=== PATIENT | male | born 1980 | race Caucasian/White ===

== ENCOUNTER 2016-05-14 15:16 | Inpatient (IN) | payer OTHER ==
[~2016-05-14] VITALS: Ht 152.4 cm; Wt 120.0 kg
[~2016-05-14 15:16] MED LIST: ALEN35TA24 PO; CYAN1LOZ SL; CYCL1PAK PO; ESCI10TA PO; FENT75DI T-DERMAL; FLUT50SP EACH NARE; GABA400 PO; KCL10 PO; LEXA10TA PO; LEXA20TA PO; MELO15 PO; PERC10TA27 PO; SPIR50 PO; TRAZ50TA78 PO
[2016-05-14 15:31] VITALS: BP 120/80; PULSE 120; RESP 18; TEMP 98.7
--- NOTE | 2016-05-14 15:42 | PD ---
HPI Chief Complaint: Psychiatric Symptoms Time Seen by Provider: 15:42 Travel History International Travel<30 days: No Contact w/Intl Traveler<30days: No Traveled to known affect area: No History of Present Illness HPI 35-year-old male presents to the emergency department with local police under the Shields act for suicidal ideation. Patient has history of juvenile rheumatoid arthritis with stunted growth and neck pain. Patient has had bilateral hip replacement, bilateral knee replacement, and fused ankles. Patient normally has been taking Percocet and gabapentin as well as fentanyl for his pain. Patient states he had a disagreement with his pain management doctor approximate 3 weeks ago and has been without his pain and since that time. Patient feels that he cannot go on, and states a plan to kill himself including going out into traffic treated by car, or refusing to eat. He has no other acute medical complaints. He has no known drug allergies. PFSH Past Medical History Arthritis: Yes (RHEUMATOID, OSTEOARTHRITIS) Asthma: No Autoimmune Disease: Yes Anxiety: Yes Depression: No Heart Rhythm Problems: No Cancer: No (See EMR) High Cholesterol: No Chest Pain: No Congestive Heart Failure: No COPD: No Cerebrovascular Accident: No Diminished Hearing: No Endocrine: No Gastrointestinal Disorders: No GERD: Yes Genitourinary: No Hepatitis: No Hiatal Hernia: No Hypertension: No Immune Disorder: Yes (JUVENILE ARTHRITIS) Implanted Vascular Access Dvce: Yes Kidney Stones: No Musculoskeletal: Yes Neurologic: No Psychiatric: Yes Reproductive: No Respiratory: No Migraines: No Myocardial Infarction: No Renal Failure: No Sleep Apnea: No Ulcer: No Past Surgical History Abdominal Surgery: No AICD: No Appendectomy: No Arteriovenous Shunt: No Cardiac Surgery: No Cholecystectomy: No Ear Surgery: No Endocrine Surgery: No Eye Surgery: No Genitourinary Surgery: No Insulin Pump: No Joint Replacement: Yes (BILATERAL KNEE AND BILATERAL HIPS) Oral Surgery: No Pacemaker: No Thoracic Surgery: No Social History Alcohol Use: No Tobacco Use: Yes (cigars infrequently) Substance Use: No Allergies-Medications (Allergen,Severity, Reaction): Coded Allergies: No Known Allergies (Verified , 11/03/15) Reported Meds & Prescriptions Reported Meds & Active Scripts Active Desyrel (Trazodone HCl) 50 Mg Tab 50 Mg PO HS PRN Aldactone 50 Mg Tab (Spironolactone) 50 Mg Tab 50 Mg PO DAILY Klor-Con 10 (Potassium Chloride) 10 Meq Tab 10 Meq PO EVERY OTHER DAY Mobic 15 Mg Tab (Meloxicam) 15 Mg Tab 7.5 Mg PO 1/2 PO BID Neurontin (Gabapentin) 400 Mg Cap 800 Mg PO 2 PO TID Escitalopram Oxalate 10 Mg Tab 30 Mg PO 3 DAILY Cyclobenzaprine HCl 10 Mg Tab 10 Mg PO TID Reported Lexapro (Escitalopram Oxalate) 10 Mg Tab 10 Mg PO HS Lexapro (Escitalopram Oxalate) 20 Mg Tab 20 Mg PO DAILY Fentanyl 75 Mcg/Hr patch (Fentanyl) 75 Mcg/Hr Dis 1 Patch T-DERMAL Q3D Fluticasone Propionate (Nasal) 50 Mcg Spr 2 [place] EACH NARE DAILY Vitamin B-12 (Cyanocobalamin) 5,000 Mcg Sub 5,000 Mcg SL WEEKLY Alendronate Sodium 35 Mg Tab 35 Mg PO WEEKLY TUESDAY Percocet 10-325 mg (Oxycodone-Acetaminophen 10-325 mg) 1 Tab 1 Tab PO TID PRN PAIN Review of Systems Except as stated in HPI: all other systems reviewed are Neg General / Constitutional: No: Fever Eyes: No: Visual changes HENT: No: Headaches Cardiovascular: No: Chest Pain or Discomfort Respiratory: No: Shortness of Breath Gastrointestinal: No: Abdominal Pain Genitourinary: No: Dysuria Musculoskeletal: Positive: Myalgias, Arthralgias, Limited ROM, Pain (chronic pain. See history present illness.) Skin: No Rash Neurologic: No: Weakness Psychiatric: Positive: Depression, Suicidal Ideations, No: Homicidal Ideation Endocrine: No: Polydipsia Hematologic/Lymphatic: No: Easy Bruising Physical Exam Narrative GENERAL: Patient appears in no acute distress. SKIN: Warm and dry. Normal color. Normal turgor. HEAD: Atraumatic. Normocephalic. EYES: Pupils equal and round. No scleral icterus. No injection or drainage. ENT: No nasal bleeding or discharge. Mucous membranes pink and moist. NECK: Trachea midline. No JVD. CARDIOVASCULAR: Regular rate and rhythm. RESPIRATORY: No accessory muscle use. Clear to auscultation. Breath sounds equal bilaterally. GASTROINTESTINAL: Abdomen soft, non-tender, nondistended. Hepatic and splenic margins not palpable. MUSCULOSKELETAL: Extremities without clubbing, cyanosis, or edema. Patient has chronic abnormalities consistent with his history. No acute issues are noted. NEUROLOGICAL: Awake and alert. No obvious cranial nerve deficits. Motor grossly limited consistent with the patient's history. Five out of 5 muscle strength in the arms and legs. Normal speech. PSYCHIATRIC: Appropriate mood and affect; insight and judgment normal. Data Data Last Documented VS Vital Signs Date Time Temp Pulse Resp B/P Pulse Ox O2 Delivery O2 Flow Rate FiO2 05/14/16 15:31 98.7 120 18 120/80 Orders Complete Blood Count With Diff (05/14/16 15:42) Comprehensive Metabolic Panel (05/14/16 15:42) Psych Screen (05/14/16 15:42) Drug Screen, Random Urine (05/14/16 15:42) Alcohol (Ethanol) (05/14/16 15:42) Gabapentin (Neurontin) (05/14/16 16:00) Oxycodone-Acetamin 10-325 Mg (Percocet 1 (05/14/16 16:00) Diet Regular Basic (05/14/16 Dinner) Labs Laboratory Tests Test 05/14/16 15:43 White Blood Count 11.7 TH/MM3 Red Blood Count 5.23 MIL/MM3 Hemoglobin 13.9 GM/DL Hematocrit 42.0 % Mean Corpuscular Volume 80.2 FL Mean Corpuscular Hemoglobin 26.6 PG Mean Corpuscular Hemoglobin 33.1 % Concent Red Cell Distribution Width 13.8 % Platelet Count 202 TH/MM3 Mean Platelet Volume 9.0 FL Neutrophils (%) (Auto) 68.0 % Lymphocytes (%) (Auto) 26.0 % Monocytes (%) (Auto) 4.7 % Eosinophils (%) (Auto) 0.8 % Basophils (%) (Auto) 0.5 % Neutrophils # (Auto) 7.9 TH/MM3 Lymphocytes # (Auto) 3.0 TH/MM3 Monocytes # (Auto) 0.5 TH/MM3 Eosinophils # (Auto) 0.1 TH/MM3 Basophils # (Auto) 0.1 TH/MM3 CBC Comment DIFF FINAL Differential Comment Sodium Level 138 MEQ/L Potassium Level 3.2 MEQ/L Chloride Level 101 MEQ/L Carbon Dioxide Level 30.5 MEQ/L Anion Gap 7 MEQ/L Blood Urea Nitrogen 13 MG/DL Creatinine 0.62 MG/DL Estimat Glomerular Filtration 149 ML/MIN Rate Random Glucose 117 MG/DL Calcium Level 8.8 MG/DL Total Bilirubin 0.3 MG/DL Aspartate Amino Transf 14 U/L (AST/SGOT) Alanine Aminotransferase 30 U/L (ALT/SGPT) Alkaline Phosphatase 61 U/L Total Protein 8.1 GM/DL Albumin 3.9 GM/DL Ethyl Alcohol Level LESS THAN 3 MG/DL MDM Medical Decision Making Medical Screen Exam Complete: Yes Emergency Medical Condition: Yes Differential Diagnosis Shields act. Suicidal ideation. Chronic pain from juvenile rheumatoid arthritis. Situational stressors. Narrative Course Patient is medically stable at time of exam. Labs ordered per psychiatric protocol. Patient is given gabapentin 800 mg by mouth 1 as well as Percocet 12/3250. CBC shows mild leukocytosis of 11.7 without shift. CMP shows normal sodium potassium 3.2. Normal BUN/creatinine. Random glucose is 117. EtOH level is less than 3. Patient will be given 20 mEq of potassium by mouth. Patient is medically clear for psychiatric evaluation. Diagnosis Primary Impression: Suicidal ideation Additional Impressions: Major depressive disorder Qualified Code: F33.9 - Recurrent major depressive disorder, remission status unspecified Juvenile rheumatoid arthritis Condition: Stable Marko Will May 14, 2016 15:42
[2016-05-14] MEDS ORDERED: GABAPENTIN 400 MG CAP PO ONE ×2 (16:00→22:45)
[2016-05-14] MEDS ORDERED: oxyCODONE/ACETAMINOPHEN 10 MG/325 MG TAB PO ONE ×2 (16:00→22:45)
[2016-05-14 16:53] LABS: AUTOMATED NEUTROPHIL # 7.9 TH/MM3 (1.8-7.7); BASOPHIL # 0.1 TH/MM3 (0-0.2); BASOPHIL % 0.5 % (0.0-2.0); EOSINOPHIL # 0.1 TH/MM3 (0-0.4); EOSINOPHIL % 0.8 % (0.0-4.0); HEMO FLAGS DIFF FINAL; MEAN CELL VOLUME 80.2 FL (80.0-100.0); MEAN CORPUSCULAR HEMOGLOBIN 26.6 PG (27.0-34.0); MEAN CORPUSCULAR HGB CONC 33.1 % (32.0-36.0); MONO % 4.7 % (0.0-8.0); PLATELET COUNT 202 TH/MM3 (150-450); RED BLOOD COUNT 5.23 MIL/MM3 (4.50-5.90); RED CELL DISTRIBUTION WIDTH 13.8 % (11.6-17.2); WHITE BLOOD COUNT 11.7 TH/MM3 (4.0-11.0)
[2016-05-14 17:19] LABS: ANION GAP 7 MEQ/L (5-15)
[2016-05-14 17:23] LABS: ALKALINE PHOSPHATASE 61 U/L (45-117); ALT (GPT) 30 U/L (12-78); AST (GOT) 14 U/L (15-37); BICARBONATE 30.5 MEQ/L (21.0-32.0); BLOOD UREA NITROGEN 13 MG/DL (7-18); CHLORIDE 101 MEQ/L (98-107); GLOMERULAR FILTRATION RATE 149 ML/MIN (>89); POTASSIUM 3.2 MEQ/L (3.5-5.1); SODIUM (NA) 138 MEQ/L (136-145); TOTAL BILIRUBIN ADULT 0.3 MG/DL (0.2-1.0)
[2016-05-14] MEDS ORDERED: MELO-1 PO (20:15)
[2016-05-14] MEDS ORDERED: POTASSIUM CHLORIDE 20 MEQ CONTROLLED RELEASE TAB PO ONE (20:30)
[2016-05-14 21:18] VITALS: BP 89/52; PULSE 81; RESP 17; O2SAT 98
[2016-05-14] MEDS: traZODone HCL 50 MG TAB PO SCH (22:01)
[2016-05-15 01:07] LABS: AMPHETAMINE, URINE NEG (NEG); BARBITURATES, URINE NEG (NEG); COCAINE, URINE POS (NEG)
[2016-05-15 02:37] VITALS: BP 96/51; PULSE 65; RESP 18; TEMP 97.4; O2SAT 98
[2016-05-15] MEDS ORDERED: IBUPROFEN 600 MG TAB PO ONE (04:00)
[2016-05-15 06:12] VITALS: BP 95/55; PULSE 73; RESP 18; TEMP 97.7; O2SAT 96
[2016-05-15] MEDS: oxyCODONE/ACETAMINOPHEN 10 MG/325 MG TAB PO SCH (08:00)
[2016-05-15] MEDS: GABAPENTIN 400 MG CAP PO SCH (08:00)
[2016-05-15 10:41] VITALS: BP 100/55; PULSE 89; RESP 18; O2SAT 96
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
[2016-05-15] MEDS ORDERED: ALUMINUM/MAGNESIUM/SIMETH 30 ML CUP PO PRN (11:45)
[2016-05-15] MEDS ORDERED: MAGNESIUM HYDROXIDE SUSP 30 ML CUP PO PRN (11:45)
[2016-05-15 13:15] VITALS: BP 114/69; PULSE 89; RESP 12; TEMP 97
[2016-05-15 21:25] VITALS: BP 99/77; PULSE 67
[2016-05-15] MEDS: traZODone HCL 50 MG TAB PO SCH (21:28)
[2016-05-15] MEDS: ACETAMINOPHEN 325 MG TAB PO PRN (23:05)
[2016-05-16 05:29] VITALS: BP 135/78; PULSE 83; RESP 17; TEMP 97.4; O2SAT 95
[2016-05-16 08:22] LABS: ANION GAP 7 MEQ/L (5-15); BICARBONATE 29.2 MEQ/L (21.0-32.0); BLOOD UREA NITROGEN 10 MG/DL (7-18); CHLORIDE 105 MEQ/L (98-107); GLOMERULAR FILTRATION RATE 174 ML/MIN (>89); LDL CHOLESTEROL 82 MG/DL (0-99); MAGNESIUM 2.4 MG/DL (1.5-2.5); POTASSIUM 3.7 MEQ/L (3.5-5.1); SODIUM (NA) 141 MEQ/L (136-145)
[2016-05-16] MEDS: oxyCODONE/ACETAMINOPHEN 10 MG/325 MG TAB PO SCH (08:22)
[2016-05-16] MEDS: GABAPENTIN 400 MG CAP PO SCH ×2 (08:23→17:30)
[2016-05-16] MEDS: ACETAMINOPHEN 325 MG TAB PO PRN ×2 (13:24→20:45)
[2016-05-16 14:10] LABS: HEMOGLOBIN A1a 1.2 %; HEMOGLOBIN A1b 0.8 %; HEMOGLOBIN Ao 86.6 %; HEMOGLOBIN F 0.9 %; HEMOGLOBIN LA1C 1.8 %; HEMOGLOBIN P3 3.5 %
[2016-05-16] MEDS ORDERED: traZODone HCL 50 MG TAB PO PRN (14:15)
--- NOTE | 2016-05-16 14:31 | HHI.HP ---
Provisional Diagnosis Admission Date May 15, 2016 at 11:38 [place] I. Major depressive disorder recurrent severe without psychosis f 34.2 Certification of Person's Competence To Provide Express and Informed Consent I have personally examined Prabhjot Britt , a person being served at [facility] on, May 16, 2016 14:17. Express and informed consent means consent voluntarily given in writing, by a competent person, after sufficient explanation and disclosure of the subject matter involved to enable the person to make a knowing and willful decision without any element of force, fraud, deceit, duress, or other form of constraint or coercion. This person is 18 years of age or older, is not now known to be incompetent to consent to treatment with a guardian advocate, and does not have a health care surrogate or proxy currently making medical treatment decisions. I have found this person to be one of the following: []x Competent to provide express and informed consent, as defined above, for voluntary admission to this facility and is competent to provide express and informed consent for treatment. He/she has the consistent capacity to make well reasoned, willful, and knowing decisions concerning his or her medical or mental health treatment. The person fully and consistently understands the purpose of the admission for examination/placement and is fully capable of personally exercising all rights assured [place] Incompetent to provide express and informed consent to voluntary admission, and this is incompetent to provide express and informed consent to treatment. The person must be transferred to involuntary status and a petition for a guardian advocate filed with the Circuit Court. [] Refusing to provide express and informed consent to voluntary admission but is competent to provide express and informed consent for treatment. The person must be discharged or transferred to involuntary status. Form shall be completed within 24 hours of a person's arrival at the receiving facility and filed in the clinical record of each person: 1. Admitted on a voluntary basis 2. Permitted to provide express and informed consent to his/her own treatment 3. Allowed to transfer from involuntary to voluntary status 4. Prior to permitting a person to consent to his or her own treatment after having been previously found incompetent to consent to treatment. History of Present Illness Capacity: Has Capacity HPI Patient is a 35-year-old male severely disabled with arthritic issues in a wheelchair comes here under Shields act by Dr. thomas is community psychiatrist dated [place] at 1 PM stating Mr. Britt presents with depressed mood and in severe pain he states he does not feel in control insistence of being more impulsive driving his chair in street in order to kill himself he states he is intentionally starving himself in order to he does not care anymore. Patient seen screened in the ED urine toxicology positive for cocaine. At the present time patient sitting in a Gina chair nurse Gemma present throughout session. Patient is alert oriented calm cooperative did remember me from my caring for him 12/05/15 through 12/13/15 visited [phone]. Stating he is still grieving the of his 33-year-old friend was is" confident back in December. Though he states he has gone through counseling he still misses them and. He is also states she's been somewhat noncompliant with his medication including his Lexapro. He does acknowledge going on socializing with friends having some alcoholic beverages smoking marijuana. States the cocaine he had most of come through a spiked joint. Event patient is vague about suicidality at the present time he does deny voices or visions. He does receive back is medications. He does wish to have further counseling related to his friend's . He is stating he is having some increased stressors living at home with his mother. At this time patient does meet criteria for inpatient psychiatric hospitalization they feel he has capacity to sign voluntary thus I'll lift the Shields act. We'll continue him on his Neurontin Lexapro is trazodone. We have hospitalist consulting with us for his pain management and other medical issues. Hopeless to be a short stay in returned to the family follow-up [facility] Review of Systems Except as stated in HPI: all other systems reviewed are Neg Past Psych History Psychological trauma history Patient states friend was 33 years old of a heart attack January 10 he is still grieving Violence risk - others (6 mos) Low Violence risk - self (6 mos) Patient states his vague suicidality consider driving his amega into traffic Substance Abuse History Drugs/Alcohol past 12 months States was all friends occasionally drinks alcohol and smokes marijuana perhaps uses cocaine Past Family Social History Coded Allergies: No Known Allergies (Verified , 11/03/15) Past Medical History Multiple please see MedSurg Active Scripts Trazodone Hcl (Desyrel)50 Mg Tab50 Mg PO HS PRN (INSOMNIA) #15 TAB Ref 0 Prov:Ish Villalta MD 11/12/15 Spironolactone (Aldactone 50 Mg Tab)50 Mg Tab50 Mg PO DAILY #30 TAB Ref 0 Prov:Ish Villalta MD 11/12/15 Potassium Chloride (Klor-Con 10)10 Meq Tab10 Meq PO EVERY OTHER DAY #30 TAB Ref 0 Prov:Ish Villalta MD 11/12/15 Gabapentin (Neurontin)400 Mg Scx828 Mg PO 2 po tid #180 CAP Ref 0 Prov:Ish Villalta MD 11/12/15 Lfamqmglvaazaqs-Mdumryavt-Dbso (Cyclobenzaprinepax 10 & 0.0375-5 mg & %)10 Mg Tab10 Mg PO TID #90 TAB Ref 0 Prov:Ish Villalta MD 11/12/15 Reported Medications Meloxicam 15 Mg Tab50 Mg PO DAILY #30 TAB Ref 0 05/14/16 Escitalopram Oxalate (Lexapro)10 Mg Tab10 Mg PO HS 11/04/15 Escitalopram Oxalate (Lexapro)20 Mg Tab20 Mg PO DAILY 11/04/15 Fentanyl 75 Mcg/Hr patch 75 Mcg/Hr Dis1 Patch T-DERMAL Q3D 11/04/15 Fluticasone Propionate (Nasal) 50 Mcg Spr2 [place] EACH NARE DAILY 11/04/15 Cyanocobalamin (Vitamin B-12)5,000 Mcg Sub5,000 Mcg SL WEEKLY 11/04/15 Alendronate Sodium 35 Mg Tab35 Mg PO WEEKLY Tuesday11/04/15 Oxycodone-Acetaminophen 10-325 mg (Percocet 10-325 mg)1 Tab1 Tab PO TID #40 TAB PRN PAIN 11/17/12 Discontinued Scripts Meloxicam (Mobic 15 Mg Tab)15 Mg Tab7.5 Mg PO 1/2 po bid #15 TAB Ref 0 Prov:Ish Villalta MD 11/12/15 Escitalopram Oxalate 10 Mg Tab30 Mg PO 3 daily #90 TAB Ref 0 Prov:Ish Villalta MD 11/12/15 Current Medications Medications (Trade) Dose Ordered Sig/Michel Route Start Time Stop Time Status Last Admin (Neurontin) 800 mg DAILY@08 PO 05/15/16 08:00 05/16/16 08:23 (Desyrel) 50 mg HS PO 05/14/16 21:00 05/15/16 21:28 (Percocet 10-325 Mg) 1 tab DAILY@08 PO 05/15/16 08:00 05/16/16 08:22 (Tylenol) 650 mg Q4H PRN PO 05/15/16 11:45 05/16/16 13:24 (Milk Of Magnesia Liq) 30 ml DAILY PRN PO 05/15/16 11:45 (Mag-Al Plus Susp Liq) 30 ml Q6H PRN PO 05/15/16 11:45 Family History Patient denies mental illness and family Social History She lives with mother Patient's Strengths (min. 2) Patient verbal labile axis health care Physical Exam Patient seen screened in ED exam reveals and agreed with vital signs blood pressure 135/78 pulse 83 respirations 17 Vital Signs Vital Signs Date Time Temp Pulse Resp B/P Pulse Ox O2 Delivery O2 Flow Rate FiO2 05/16/16 05:29 97.4 83 17 135/78 95 05/15/16 10:41 Room Air Mental Status Examination Alert oriented quite short with arthritic change extremities significant Gina chair male calm cooperative with fair eye contact Appearance Clean neatly Speech: Unremarkable Orientation: x3 Memory: Unremarkable Thought Process: Logical Thought Content: Unremarkable Hallucination Type: None Attention and Concentration: Other (fair) Suicidal Ideation: Yes (vague) Previous Suicide Attempts: No Homicidal Ideation: No Previous Homicide Attempts: No Insight: Poor Judgement: Poor Affect: Other (slight decreased range and intensity) Mood: Euthymic (to moderately dysphoric) Motor Activity: Abnormal gait-specify (patient wheelchair-bound secondary to arthritic changes) Assessment & Plan Problem List: (1) MAJOR DEPRESSV DISORDER, RECURRENT SEVERE W/O PSYCH FEATURES ICD Code: F33.2 Assessment & Plan Estimated LOS: 3-5 days patient is criteria for brief psychiatric hospitalization on a voluntary basis will lift Shields act will continue medications as prior order. Patient still voices suicidal ideation though states feels safe here at [facility] Discharge Planning To be determined Request HC Surrog/Guard Advoc?: No Ish Villalta MD May 16, 2016 14:31
--- NOTE | 2016-05-16 14:34 | PD.CONS ---
HPI Service [facility] Consult Requested By Psychiatry team Reason for Consult Medical management Primary Care Physician Non-Staff Diagnoses: History of Present Illness Patient is a 35-year-old male with primary medical history of juvenile arthritis , chronic pain came into the hospital under Shields act for suicidal ideation. 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 Patient has had bilateral hip replacement, bilateral knee replacement, and fused ankles. Patient states that he is being followed by his PCP, cardiology, pain management - [facility] pain clinic with Dr. Lozano. States he has been taking Percocets 10/325, gabapentin 3 times a day, fentanyl patch 75 mics every 3 days. States he was changing his pain doctor and has run out of medication since Tuesday. His mother has told him that he might benefit with medical cannabis and be off of fentanyl patch, that's why he is changing his doctors. He continues to complain of bilateral knee pain and neck pain 09/04, also ankle pain and ankle swelling but states he always has pain and swelling. Patient also states he is nonambulatory, uses wheelchair at home. Otherwise, denies SOB/ dyspnea. Denies chest pain, palpitations, headaches, dizziness. Denies fevers, chills, n/v/d. Review of Systems Except as stated in HPI: all other systems reviewed are Neg Past Family Social History Allergies: Coded Allergies: No Known Allergies (Verified , 11/03/15) Past Medical History Juvenile arthritis Rheumatoid arthritis Anxiety Irregular heart beat? Past Surgical History Bilateral knee and bilateral hip replacements Reported Medications Desyrel (Trazodone HCl) 50 Mg Tab 50 Mg PO HS PRN Aldactone 50 Mg Tab (Spironolactone) 50 Mg Tab 50 Mg PO DAILY Klor-Con 10 (Potassium Chloride) 10 Meq Tab 10 Meq PO EVERY OTHER DAY Mobic 15 Mg Tab (Meloxicam) 15 Mg Tab 7.5 Mg PO 1/2 PO BID Neurontin (Gabapentin) 400 Mg Cap 800 Mg PO 2 PO TID Escitalopram Oxalate 10 Mg Tab 30 Mg PO 3 DAILY Cyclobenzaprine HCl 10 Mg Tab 10 Mg PO TID Active Ordered Medications Current Medications Medications (Trade) Dose Ordered Sig/Michel Route Start Time Stop Time Status Last Admin (Neurontin) 800 mg DAILY@08 PO 05/15/16 08:00 05/16/16 08:23 (Desyrel) 50 mg HS PO 05/14/16 21:00 05/15/16 21:28 (Percocet 10-325 Mg) 1 tab DAILY@08 PO 05/15/16 08:00 05/16/16 08:22 (Tylenol) 650 mg Q4H PRN PO 05/15/16 11:45 05/16/16 13:24 (Milk Of Magnesia Liq) 30 ml DAILY PRN PO 05/15/16 11:45 (Mag-Al Plus Susp Liq) 30 ml Q6H PRN PO 05/15/16 11:45 Family History Heart disease in the family Social History Denies alcohol use Smokes cigar occasionally Denies substance abuse, but states friend was smoking cocaine that he probably inhaled it, positive cocaine screen Physical Exam Vital Signs Vital Signs Date Time Temp Pulse Resp B/P Pulse Ox O2 Delivery O2 Flow Rate FiO2 05/16/16 05:29 97.4 83 17 135/78 95 05/15/16 21:25 67 99/77 Physical Exam GENERAL: This is a patient with juvenile arthritis, in no apparent distress. SKIN: No rashes, ecchymoses or lesions. Cool and dry. HEAD: Atraumatic. Normocephalic. No temporal or scalp tenderness. EYES: Pupils equal round and reactive. Extraocular motions intact. No scleral icterus. No injection or drainage. ENT: Nose without bleeding. Throat without erythema. Uvula midline. Airway patent. NECK: Trachea midline. No JVD or lymphadenopathy. Supple, nontender, no meningeal signs. CARDIOVASCULAR: Irregular heart rate without murmurs, gallops, or rubs. RESPIRATORY: Clear to auscultation. Breath sounds equal bilaterally. No wheezes , rales, or rhonchi. GASTROINTESTINAL: Abdomen soft, non-tender, nondistended. No guarding. MUSCULOSKELETAL: Bilateral upper extremities motor and sensory within normal. Bilateral pedal edema +2, discolored. NEUROLOGICAL: Awake and alert. Normal speech. Laboratory Laboratory Tests Test 05/16/16 06:42 Erythrocyte Sedimentation Rate 9 Sodium Level 141 Potassium Level 3.7 Chloride Level 105 Carbon Dioxide Level 29.2 Anion Gap 7 Blood Urea Nitrogen 10 Creatinine 0.54 Estimat Glomerular Filtration 174 Rate Random Glucose 91 Calcium Level 8.3 Magnesium Level 2.4 Triglycerides Level 81 Cholesterol Level 126 LDL Cholesterol 82 HDL Cholesterol 28.0 Cholesterol/HDL Ratio 4.50 Result Diagram: 05/14/16 1543 05/16/16 0642 Assessment and Plan Problem List: (1) Edema ICD Code: R60.9 Status: Acute (2) Juvenile rheumatoid arthritis ICD Code: M08.00 Status: Acute (3) Major depressive disorder ICD Code: F32.9 Status: Acute Assessment and Plan Patient is a 35-year-old male with primary medical history of juvenile arthritis , chronic pain came into the hospital under Shields act for suicidal ideation. Admitted to inpatient psychiatry unit for further evaluation. Consulted for medical management. Juvenile arthritis, chronic pain - patient is being seen by [facility] pain management Dr. Lozano, planning to switch doctors secondary to wanting to try out medical cannabis. Has run out of medication as per his report. States he takes Percocets 10/325, fentanyl patch 75 g every 3 days, gabapentin 800 mg 3 times a day, and mobic - Verified with [employer]. Patient has been seeing multiple providers for pain medication. He has been off fentanyl since last March. Patient's urine tox also positive for cocaine. - Continue Percocets per attending. Obtain records from PCP and pain management - Restart gabapentin 800 mg 3 times a day Irregular heart rate as claimed by patient -followed by cardiologists as an outpatient unable to tell any cardiac disorder. - Will verify with pharmacy if patient is really taking spironolactone or any other cardiac medications - Nurse aware for medication reconciliation. Bilateral lower edema - dependent elevated when necessary. Will verify use of spironolactone from his pharmacy. DVT prop heparin twice a day subcutaneous Written by Michael Palafox, acting as scribe for Dr. Hsu on 05/16/16 at 13: 38. The documentation accurately reflects the work performed [id number] by me on at 14:49. Code Status Full code Discussed Condition With Patient, nursing Problem Qualifiers (1) Major depressive disorder: Qualified Code: F33.1 - Moderate episode of recurrent major depressive disorder Michael Renner May 16, 2016 14:34 Curtis Hsu MD May 16, 2016 14:49
[2016-05-16] MEDS: ESCITALOPRAM OXALATE 20 MG TAB PO SCH (15:40)
[2016-05-16 18:26] VITALS: BP 107/58; PULSE 71; RESP 16; TEMP 98.2; O2SAT 99
[2016-05-16] MEDS: ESCITALOPRAM OXALATE 10 MG TAB PO SCH (20:40)
[2016-05-16] MEDS: traZODone HCL 50 MG TAB PO SCH (20:40)
[2016-05-17 04:59] VITALS: BP 113/68; PULSE 75; RESP 18; TEMP 98; O2SAT 97
[2016-05-17] MEDS: oxyCODONE/ACETAMINOPHEN 10 MG/325 MG TAB PO SCH (08:26)
[2016-05-17] MEDS: ESCITALOPRAM OXALATE 20 MG TAB PO SCH (08:26)
[2016-05-17] MEDS: GABAPENTIN 400 MG CAP PO SCH ×3 (08:26→18:00)
--- NOTE | 2016-05-17 15:27 | HHI.PYPN ---
Subjective Remarks Patient discussed with treatment team and medical student Velia, chart review , patient seen on unit after treatment team. Patient compliant medications seems to be fitting in perhaps a little bit too well, does denies suicidality at this time is vague about acknowledging any perceptual abnormalities. Is vague about willingness to return home with his mother. For now continue treatment though need to further explore placement with Review of Systems Except as stated in HPI: all other systems reviewed are Neg Objective Alert: Yes Cameron: Person (ox4) Mood: Depressed Affect: Euthymic Memory Intact: Comment (no impairment) Hallucinations: Other (negative) Delusions: No Delusion Type: Other (mildly vigilant) Suicidal: Ideation (positive to drive wheelchair in traffic and starve himself. ) Homicidal: Ideation (deneis any) Insight/Judgement Poor Vitals/IOs Vital Signs Date Time Temp Pulse Resp B/P Pulse Ox O2 Delivery O2 Flow Rate FiO2 05/17/16 04:59 98.0 75 18 113/68 97 05/15/16 10:41 Room Air Assessment & Plan Problem List: (1) MAJOR DEPRESSV DISORDER, RECURRENT SEVERE W/O PSYCH FEATURES ICD Code: F33.2 Assessment & Plan Estimated LOS: days patient continues depressed though behaving well on unit, compliant medications. There appears reprep some degree of manipulation with this we'll continue to observe overnight Justification for Cont. Inpt. At this time patient decompensate if placed on the lower level of care Discharge Planning To be determined Request HC Surrog/Guard Advoc?: No Ish Villalta MD May 17, 2016 15:26
--- NOTE | 2016-05-17 16:24 | HHI.PR ---
Subjective Remarks Follow-up chronic neck pain. Requesting increase Percocet to every 8H. Records still not available. Discussed with RN Objective Vitals Vital Signs Date Time Temp Pulse Resp B/P Pulse Ox O2 Delivery O2 Flow Rate FiO2 05/17/16 04:59 98.0 75 18 113/68 97 05/16/16 18:26 98.2 71 16 107/58 99 Result Diagram: 05/14/16 1543 05/16/16 0642 Objective Remarks GENERAL: This is a patient with juvenile arthritis, in no apparent distress. Short stature SKIN: No rashes, ecchymoses or lesions. Cool and dry. HEAD: Atraumatic. Normocephalic. No temporal or scalp tenderness. EYES: Pupils equal round and reactive. Extraocular motions intact. No scleral icterus. No injection or drainage. ENT: Nose without bleeding. Throat without erythema. Uvula midline. Airway patent. NECK: Trachea midline. No JVD or lymphadenopathy. Supple, nontender, no meningeal signs. CARDIOVASCULAR: Irregular heart rate without murmurs, gallops, or rubs. RESPIRATORY: Clear to auscultation. Breath sounds equal bilaterally. No wheezes , rales, or rhonchi. GASTROINTESTINAL: Abdomen soft, non-tender, nondistended. No guarding. MUSCULOSKELETAL: Bilateral upper extremities motor and sensory within normal. Bilateral pedal edema +2, discolored. NEUROLOGICAL: Awake and alert. Normal speech. A/P Problem List: (1) Edema ICD Code: R60.9 Status: Acute (2) Juvenile rheumatoid arthritis ICD Code: M08.00 Status: Acute (3) Major depressive disorder ICD Code: F32.9 Status: Acute Assessment and Plan Patient is a 35-year-old male with primary medical history of juvenile arthritis , chronic pain came into the hospital under Shields act for suicidal ideation. Admitted to inpatient psychiatry unit for further evaluation. Consulted for medical management. Juvenile arthritis, chronic pain - patient is being seen by [facility] pain management Dr. Lozano, planning to switch doctors secondary to wanting to try out medical cannabis. Has run out of medication as per his report. States he takes Percocets 10/325, fentanyl patch 75 g every 3 days, gabapentin 800 mg 3 times a day, and mobic - Verified with [employer]. Patient has been seeing multiple providers for pain medication. He has been off fentanyl since last March. Patient's urine tox also positive for cocaine. - Continue Percocets per attending. Obtain records from PCP and pain management discussed with RN to obtain medication list from pharmacy - Restart gabapentin 800 mg 3 times a day Irregular heart rate as claimed by patient -followed by cardiologists as an outpatient unable to tell any cardiac disorder. - Will verify with pharmacy if patient is really taking spironolactone or any other cardiac medications - Nurse aware for medication reconciliation. Bilateral lower edema - dependent elevated when necessary. Will verify use of spironolactone from his pharmacy. DVT prop heparin twice a day subcutaneous Problem Qualifiers (1) Major depressive disorder: Qualified Code: F33.1 - Moderate episode of recurrent major depressive disorder Curtis Hsu MD May 17, 2016 16:24
[2016-05-17 17:21] VITALS: BP 105/62; PULSE 73; RESP 16; TEMP 98.6; O2SAT 98
[2016-05-17] MEDS ORDERED: PERC10TA27 PO (17:37)
[2016-05-17] MEDS ORDERED: FENT75DI T-DERMAL (17:37)
[2016-05-17] MEDS ORDERED: MELO-1 PO (17:41)
[2016-05-17] MEDS ORDERED: SPIR50TA PO (17:41)
[2016-05-17] MEDS ORDERED: GABA800T PO (17:41)
[2016-05-17] MEDS ORDERED: CLON1TAB PO (17:47)
[2016-05-17] MEDS ORDERED: CLON0.5T PO (17:47)
[2016-05-17] MEDS: ESCITALOPRAM OXALATE 10 MG TAB PO SCH (20:34)
[2016-05-17] MEDS: traZODone HCL 50 MG TAB PO SCH (20:35)
[2016-05-17] MEDS: ACETAMINOPHEN 325 MG TAB PO PRN (20:35)
[2016-05-17] MEDS ORDERED: fentaNYL 75 MCG/HR PATCH T-DERMAL SCH (21:00)
[2016-05-17] MEDS ORDERED: oxyCODONE/ACETAMINOPHEN 10 MG/325 MG TAB PO PRN (21:00)
[2016-05-17] MEDS ORDERED: oxyCODONE/ACETAMINOPHEN 10 MG/325 MG TAB PO ONE (21:15)
[2016-05-18 05:31] VITALS: BP 116/79; PULSE 80; RESP 16; TEMP 97.3; O2SAT 99
[2016-05-18] MEDS: oxyCODONE/ACETAMINOPHEN 10 MG/325 MG TAB PO SCH (08:00)
[2016-05-18] MEDS: ESCITALOPRAM OXALATE 20 MG TAB PO SCH (08:28)
[2016-05-18] MEDS: GABAPENTIN 400 MG CAP PO SCH ×3 (08:28→17:46)
[2016-05-18] MEDS ORDERED: MELOXICAM 15 MG TAB PO SCH (09:00)
[2016-05-18] MEDS ORDERED: SPIRONOLACTONE 50 MG TAB PO SCH (09:00)
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
== END 2016-05-18 18:20 | disposition home or self-care (01) | DRG 885 ==
LOC: NEDAMB 15:16 → NEDA 05-15 11:38 → H260 05-15 13:00
PROVIDERS: ADMIT Psychiatry & Neurology Psychiatry; ATTEND Psychiatry & Neurology Psychiatry
DX: F33.2 Major depressive disorder, recurrent severe without psychotic features (principal); Z91.14 Patient's other noncompliance with medication regimen; F41.9 Anxiety disorder, unspecified; F12.90 Cannabis use, unspecified, uncomplicated; M08.00 Unspecified juvenile rheumatoid arthritis of unspecified site; Z96.643 Presence of artificial hip joint, bilateral; Z96.653 Presence of artificial knee joint, bilateral; F17.290 Nicotine dependence, other tobacco product, uncomplicated; G89.29 Other chronic pain; M54.2 Cervicalgia; M19.90 Unspecified osteoarthritis, unspecified site; K21.9 Gastro-esophageal reflux disease without esophagitis
CPT/HCPCS: 80048; 80053; 80061; 80307; 80320; 83036; 83735; 85025; 85652; 99284

== ENCOUNTER 2016-10-21 13:17 | Emergency (ER) | payer OTHER ==
[~2016-10-21] VITALS: Ht 152.4 cm; Wt 54.5 kg
[~2016-10-21 13:17] MED LIST changes: +CLON0.5T PO; +CLON1TAB PO; -ESCI10TA PO; +GABA800T PO; +MELO-1 PO; -MELO15 PO; +SPIR50TA PO
[2016-10-21 13:18] VITALS: BP 91/55; PULSE 86; RESP 18; TEMP 98.3; O2SAT 98
--- NOTE | 2016-10-21 13:30 | PD ---
Physical Exam Time Seen by Provider: 13:29 Narrative 35 y/o male here for eval of bilateral lower extremity edema for 3 weeks. Vital signs reviewed. Seen at triage desk. Awaiting bed placement. Data Data Last Documented VS Vital Signs Date Time Temp Pulse Resp B/P Pulse Ox O2 Delivery O2 Flow Rate FiO2 10/21/16 13:18 98.3 86 18 91/55 98 Room Air MDM Medical Record Reviewed: Yes Supervised Visit with JACQUES: Sandeep Hill Oct 21, 2016 13:30
== END 2016-10-21 16:05 | disposition left against medical advice (07) ==
LOC: NED 13:17
DX: R60.9 Edema, unspecified (principal); Z53.21 Procedure and treatment not carried out due to patient leaving prior to being seen by health care provider
CPT/HCPCS: 99281